=== PATIENT | male | born 1990 | race Caucasian/White ===

== ENCOUNTER 2017-03-21 08:19 | Emergency (ER) | payer OTHER ==
[2017-03-21 08:25] VITALS: BP 119/72; PULSE 86; RESP 18; TEMP 99
--- NOTE | 2017-03-21 08:47 | ED ---
ENT HPI - General Chief complaint: ENT Stated complaint: sore throat Time Seen by Provider: 03/21/17 08:29 Source: patient Mode of arrival: ambulatory Limitations: no limitations - History of Present Illness Initial comments: 26-year-old male patient presents to the emergency department today for evaluation of right lower dental pain. Patient states that the pain has been present for the last 4-5 days, and seems to be worsening. He states that the pain is not radiating into his neck and causing headaches. He states that he still has his wisdom teeth. He states he has not been to a dentist in quite some time. He states he did take one Augmentin tablet last evening and presented here because his symptoms are not improved. He denies any difficulty swallowing. Denies any difficulty opening or closing his mouth. Denies any nausea or vomiting. Denies any fever or chills with this. Patient denies any recent rash, shortness breath, chest pain, abdominal pain, diarrhea, constipation, back pain, numbness, tingling, dizziness, weakness, hematuria, dysuria, urinary urgency, urinary frequency, visual changes, or any other complaints. - Related Data Previous Rx's Medication Instructions Recorded Cyclobenzaprine [Flexeril] 10 mg PO TID #20 tablet 08/12/15 Naproxen [Naprosyn] 500 mg PO Q12HR #24 tab 08/12/15 Acetaminophen-Codeine 300-30mg 1 tab PO Q6H PRN #15 tablet 03/21/17 [Tylenol #3] Penicillin V Potassium [Pen Vee K] 500 mg PO Q6H #40 tablet 03/21/17 Allergies Allergy/AdvReac Type Severity Reaction Status Date / Time cat dander Allergy Cough Verified 03/21/17 08:25 Review of Systems ROS Statement: Those systems with pertinent positive or pertinent negative responses have been documented in the HPI. ROS Other: All systems not noted in ROS Statement are negative. Past Medical History Additional Past Medical History / Comment(s): back pain, scoliosis History of Any Multi-Drug Resistant Organisms: None Reported Past Surgical History: No Surgical Hx Reported Past Psychological History: No Psychological Hx Reported Smoking Status: Former smoker Past Alcohol Use History: None Reported Past Drug Use History: None Reported General Exam Limitations: no limitations General appearance: alert, in no apparent distress, other (Physical well- developed, well-nourished adult male patient in no acute distress. Vital signs upon presentation are temperature 99.0F, pulse 86, respirations 18, blood pressure 119/72, pulse ox 99% on room air.) Eye exam: Present: normal appearance, PERRL, EOMI. Absent: scleral icterus, conjunctival injection, periorbital swelling ENT exam: Present: normal exam, normal oropharynx (Oropharyngeal erythema, tonsillar hypertrophy, no exudate noted), mucous membranes moist, TM's normal bilaterally, other (Patient does have a large cavity noted in tooth #32. There is surrounding gingival hypertrophy and erythema. No evidence of drainable abscess.) Neck exam: Present: normal inspection, lymphadenopathy (Enlarged lymph node right anterior cervical). Absent: tenderness, meningismus Respiratory exam: Present: normal lung sounds bilaterally. Absent: respiratory distress, wheezes, rales, rhonchi, stridor Cardiovascular Exam: Present: regular rate, normal rhythm, normal heart sounds. Absent: systolic murmur, diastolic murmur, rubs, gallop, clicks Neurological exam: Present: alert, oriented X3, CN II-XII intact Psychiatric exam: Present: normal affect, normal mood Skin exam: Present: warm, dry, intact, normal color. 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 He reported the pain is radiating into his neck and causing headaches as well. Patient states pain was present for 4- 5 days. Physical examination did reveal a large cavity to tooth #32 with surrounding gingival hypertrophy and erythema. There was no evidence of drainable abscess. Patient also did have some mild oropharyngeal erythema, and tonsillar hypertrophy. Patient states that he generally has large tonsils. He has also complaining of some postnasal drip and he does have cobblestoning. Patient will be discharged home at this time with a prescription for penicillin as well as pain medication. He is instructed to follow-up with dentistry as soon as possible. He is instructed to return here immediately for any new, worsening, or concerning symptoms read verbalizes understanding and agrees with this plan. Disposition Clinical Impression: Pain, dental Disposition: HOME SELF-CARE Condition: Good Instructions: Toothache (ED) Additional Instructions: Take antibiotic prescription and full. Take medications as directed. Follow- up with dentistry as soon as possible. Return here immediately for any new, worsening, or concerning symptoms. Please follow up with the [facility]. [id number] [place] [address]. Phone number for new patients or for existing patients. Prescriptions: Acetaminophen-Codeine 300-30mg [Tylenol #3] 1 tab PO Q6H PRN #15 tablet PRN Reason: Pain Penicillin V Potassium [Pen Vee K] 500 mg PO Q6H #40 tablet Referrals: None,Stated [Primary Care Provider] - 1-2 days Time of Disposition: 08:46
== END 2017-03-21 09:06 | disposition home or self-care (01) ==
LOC: EC 08:19
DX: K02.9 Dental caries, unspecified (principal); K06.1 Gingival enlargement; R59.0 Localized enlarged lymph nodes; R51 Headache; M54.2 Cervicalgia; J35.1 Hypertrophy of tonsils; J39.2 Other diseases of pharynx; R09.82 Postnasal drip; Z87.891 Personal history of nicotine dependence; Z91.09 Other allergy status, other than to drugs and biological substances
CPT/HCPCS: 99282